=== PATIENT | male | born 1965 | race Caucasian/White ===

== ENCOUNTER 2022-03-09 12:23 | Outpatient (CLI) | payer OTHER, SELFPAY | END 2022-03-09 12:24 | disposition home or self-care (01) | LOC: AMB 03-22 17:58 | PROVIDERS: Visit Provider Family Medicine | DX: R07.89 Other chest pain (principal) | CPT/HCPCS: A0425; A0427 ==

== ENCOUNTER 2024-09-10 16:49 | Outpatient (CLI) | payer OTHER, SELFPAY | END 2024-09-10 16:50 | disposition home or self-care (01) | LOC: AMB 09-14 11:26 | PROVIDERS: Visit Provider Family Medicine | DX: R42 Dizziness and giddiness (principal); R10.9 Unspecified abdominal pain | CPT/HCPCS: A0425; A0427 ==